=== PATIENT | male | born 1965 | race Caucasian/White ===

== ENCOUNTER 2016-05-29 22:45 | Emergency (ER) | payer BC, MEDICAID ==
[2016-05-30] MEDS ORDERED: DIPHTH,PERTUSS(ACELL),TET VAC 0.5 ML VIAL IM ONE ×2 (00:56→01:06)
--- NOTE | 2016-05-30 01:23 | ERNOTE ---
Medical Problem HPI - Narrative Date of Service: 05/30/16 - General Chief Complaint: Laceration Time Seen by Provider: 05/30/16 00:30 Source: patient Exam Limitations: no limitations - Immun/Allergies/Home Medications Immunizations: IMMUNIZATION HX Immunizations Up to Date Yes History of Influenza Vaccine No Hx Pneumococcal Vaccination No Allergies/Adverse Reactions: Allergies Penicillins Adverse Reaction (Verified 05/30/16 00:17) Home Medications: HOME MEDICATIONS Naproxen [Naprosyn] 500 mg PO BID PRN #20 tablet 05/30/16 [Last Taken Unknown] Sulfamethoxazole/Trimethoprim [Bactrim Ds] 1 tab PO BID #10 tablet 05/30/16 [ Last Taken Unknown] - History of Present History Narrative: While using a saw it kicked back and cut his left hand. Now he is not able to extend the left index finger. No loss of sensation. Timing: constant Severity: mild Modifying Factors - (Improves): Present: other Modifying Factors - (Worsens): Present: other - movement of the left hand increases pain. Review of Systems - Review of Systems Constitutional: Present: no symptoms reported EYE: Present: no symptoms reported ENT: Present: no symptoms reported Respiratory: Present: no symptoms reported Cardiology: Present: no symptoms reported Gastrointestinal/Abdominal: Present: no symptoms reported Genitourinary: Present: no symptoms reported Musculoskeletal: Present: See HPI Skin: Present: no symptoms reported - Patient's Past Medical History Patient History - Medical: No pertinent hx Patient History - Cardiac/Respiratory: No pertinent hx Patient History - Cancer: No Hx of Cancer Patient History - Surgical Procedures: Other Patient History - Other: None - Family History Mother Family History - Medical: No pertinent hx Father Family History - Medical: No pertinent hx - Social History Living Situations: home Alcohol Use: occasionally Drug Use: none - Immunizations Immunizations Up to Date: Yes Hx Pneumococcal Vaccination: No History of Influenza Vaccine: No Physical Exam - Physical Exam General Appearance: Present: no apparent distress Eye Exam: Normal inspection: bilateral Ears, Nose, Throat: Present: normal ENT inspection Neck: Present: normal inspection Respiratory: Present: no respiratory distress Cardiovascular/Chest: Present: regular rate, rhythm Gastrointestinal/Abdominal: Present: nondistended Back Exam: Present: normal inspection Extremity Exam: Present: other - left hand- laceration present at the dorsum of the hand that is 3 cm in length. Not able to extend the index finger. Sensation is intact. 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 Vital Signs: Vital Signs 05/30/16 00:12 Temperature 35.9 C L Pulse Rate 92 Respiratory 16 Rate Blood Pressure 126/85 - Progress/Reassessment Chief Complaint: Laceration Progress:: Improved Progress Note-Subjective: 05/30/16 02:12 Three sutures were placed in the wound after scrubbing the hand. A splint was also placed on the index finger. 05/30/16 02:14 Hand x-ray- no fracture. Departure - Departure Clinical Impression: Hand laceration involving tendon, Extensor tendon laceration of hand with open wound Disposition: Home self-care Condition: Good Instructions: Laceration Care, Adult, [id number] Language: Colombian Additional Instructions: Keep the left hand elevated. Keep the wound clean and dry. Maintain the splint. Referrals: Magnus Null, PAC [[facility]] - Prescriptions: Naproxen [Naprosyn] 500 mg PO BID PRN #20 tablet PRN Reason: Pain Sulfamethoxazole/Trimethoprim [Bactrim Ds] 1 tab PO BID #10 tablet
[2016-05-30] MEDS ORDERED: SULFAMETHOXAZOLE/TRIMETHOPRIM 1 TAB TABLET ONE (01:46)
[2016-05-30] MEDS ORDERED: SULFAMETHOXAZOLE/TRIMETHOPRIM 1 TAB TABLET PO ONE (01:51)
[2016-05-30 02:55] VITALS: BP 131/87
== END 2016-05-30 02:14 | disposition home or self-care (01) ==
LOC: ER 22:45
PROC: 0JQK0ZZ Repair Left Hand Subcutaneous Tissue and Fascia, Open Approach (ICD-10-PCS; principal; 2016-05-29)
PROC: 2W3KX1Z Immobilization of Left Finger using Splint (ICD-10-PCS; 2016-05-29)
DX: S61.412A Laceration without foreign body of left hand, initial encounter (principal); S66.822A Laceration of other specified muscles, fascia and tendons at wrist and hand level, left hand, initial encounter; Z23 Encounter for immunization; W27.0XXA Contact with workbench tool, initial encounter

== ENCOUNTER 2016-06-02 09:50 | Day surgery (SDC) | payer MEDICAID ==
[~2016-06-02 09:50] MED LIST: ACETAMINOPHEN 500 MG TABLET PO PRN; HYDROmorphone HCL 2 MG/ML VIAL IV PRN; MAG HYDROX/ALUMINUM HYD/SIMETH 30 ML UDC PO PRN; MAGNESIUM HYDROXIDE 30 ML UDC PO PRN; ONDANSETRON HCL/PF 2 MG/ML VIAL IV PRN; PROMETHAZINE HCL 25 MG in DEXTROSE 5 % IN WATER 50 ML IV PRN; RINGERS SOLUTION,LACTATED 1,000 ML IV PRN; ZOLPIDEM TARTRATE 5 MG TABLET PO PRN; ceFAZolin SODIUM 1 GM VIAL IV PRN; diphenhydrAMINE HCL 50 MG/ML VIAL IV PRN; oxyCODONE HCL/ACETAMINOPHEN 1 TAB TABLET PO PRN
[2016-06-02] MEDS ORDERED: RINGERS SOLUTION,LACTATED 1,000 ML IV ONE ×2 (10:42→13:52)
[2016-06-02] MEDS ORDERED: BUPIVACAINE HCL 50 ML VIAL IJ ONE (14:00)
[2016-06-02 15:41] VITALS: BP 142/83
[2016-06-02] MEDS ORDERED: SENNOSIDES/DOCUSATE SODIUM 1 TAB TABLET PO SCH (21:00)
== END 2016-06-02 09:51 | disposition home or self-care (01) ==
LOC: AMB 09:50
PROVIDERS: ATTEND Orthopaedic Surgery
PROC: 0LU807Z Supplement Left Hand Tendon with Autologous Tissue Substitute, Open Approach (ICD-10-PCS; principal; 2016-06-02 12:00)
DX: S66.321A Laceration of extensor muscle, fascia and tendon of left index finger at wrist and hand level, initial encounter (principal); F17.200 Nicotine dependence, unspecified, uncomplicated; Z68.27 Body mass index [BMI] 27.0-27.9, adult; W31.2XXA Contact with powered woodworking and forming machines, initial encounter